=== PATIENT | male | born 1970 | race Caucasian/White ===

== ENCOUNTER 2016-08-24 11:07 | Day surgery (SDC) | payer BC ==
[2016-08-21 12:16] VITALS: BMI 29.7
[2016-08-24 11:38] VITALS: TEMP 98
[2016-08-24] MEDS ORDERED: LIDOCAINE 1% 20 ML VIAL (10MG/ML) FOR IV START INTRADERMA ONE (11:44)
[2016-08-24] MEDS ORDERED: LACTATED RINGERS 1,000 ML IV ONE (11:45)
[2016-08-24] MEDS ORDERED: PROPOFOL 10 MG/ML 20 ML VIAL IV ONE (12:30)
--- NOTE | 2016-08-24 12:46 | P.PCN ---
Date of Procedure: 08/24/16 Procedure(s) Performed: BRIEF HISTORY: Patient is a 46-year-old pleasant male, scheduled for an elective colonoscopy as a part of evaluation of right lower quadrant abdominal pain and intermittent rectal bleeding on and off left for the last few years duration PROCEDURE PERFORMED: Colonoscopy. PREOPERATIVE DIAGNOSIS: Right lower quadrant abdominal pain and intermittent rectal bleeding. IV sedation per Anesthesia. PROCEDURE: After informed consent was obtained, the patient, was brought into the endoscopy unit. IV sedation was administered by Anesthesia under continuous monitoring. Digital rectal examination was normal. Initially the Olympus CF- 160 flexible video colonoscope was then inserted in the rectum, gradually advanced into the cecum without any difficulty. Careful examination was performed as the scope was gradually being withdrawn. Ileocecal valve and the appendiceal orifice were visualized and appeared normal. Prep was excellent. Mucosa of the cecum, ascending colon, transverse colon, descending colon, sigmoid colon, and rectum appeared normal. Retroflexion was performed in the rectum and small internal hemorrhoids were seen. The patient tolerated the procedure well. IMPRESSION: Normal-appearing colon from rectum to cecum with no evidence of colorectal neoplasia. Small internal hemorrhoids. RECOMMENDATIONS: Findings of this examination were discussed with the patient as well as his family. He was advised to have a repeat screening colonoscopy in 10 years. He was advised to be a high-fiber diet and take fiber supplements on a regular basis.
[2016-08-24 12:50] VITALS: RESP 18
[2016-08-24 13:06] VITALS: BP 127/84; PULSE 66
== END 2016-08-24 13:41 | disposition home or self-care (01) ==
LOC: ORWHC2ENDO 11:07
PROVIDERS: ATTEND Internal Medicine Gastroenterology
DX: K64.8 Other hemorrhoids (principal); E78.5 Hyperlipidemia, unspecified; R10.31 Right lower quadrant pain; Z79.82 Long term (current) use of aspirin; Z79.899 Other long term (current) drug therapy; Z79.1 Long term (current) use of non-steroidal anti-inflammatories (NSAID)
CPT/HCPCS: 45378; J2704

== ENCOUNTER → 2016-09-04 | Outpatient (CLI) | payer BC ==
--- NOTE | 2016-09-04 11:07 | XR ---
EXAMINATION TYPE: XR abdomen 1V DATE OF EXAM: 09/04/2016 10:56 AM HISTORY: Pain Comparison: None.Single KUB is submitted for interpretation. Findings: Right renal calculi: 4.7 mm calculus mid pole right kidney. Right ureteral calculi: None Visualized. Left renal calculi: None Visualized. Left ureteral calculi: None Visualized. Pelvic calcifications: Right hemipelvic phleboliths noted. Bowel gas pattern is unremarkable. No free air. No mass effects. IMPRESSION: 1. Right renal calculus.
== END | disposition home or self-care (01) ==
LOC: RADXRMAIN 10:38
PROVIDERS: ATTEND Urology
DX: N20.0 Calculus of kidney (principal)
CPT/HCPCS: 74000

== ENCOUNTER → 2016-09-17 | Outpatient (CLI) | payer BC ==
[2016-09-17 09:37] LABS: Appearance,Urine Clear (Clear); Basophils # (A) 0.1 k/uL (0-0.2); Basophils % (A) 1 %; Bilirubin,Urine Negative (Negative); CH 31.1; CHCM 35.4; Eosinophils # (A) 0.1 k/uL (0-0.7); Eosinophils % (A) 2 %; Glucose,Urine (UA) Negative (Negative); HCT 48.4 % (39.0-53.0); HDW 2.57; HGB 16.5 gm/dL (13.0-17.5); Ketones,Urine Negative (Negative); Leukocyte Esterase,Urine Negative (Negative); Luc % (Auto) 3; Lymphocytes # (A) 2.4 k/uL (1.0-4.8); Lymphocytes % (A) 30 %; MCH 30.1 pg (25.0-35.0); MCHC 34.1 g/dL (31.0-37.0); MCV 88.1 fL (80.0-100.0); Mean Platelet Volume 6.7; Monocytes # (A) 0.6 k/uL (0-1.0); Monocytes % (A) 7 %; Neutrophils # (A) 4.6 k/uL (1.3-7.7); Neutrophils % (A) 57 %; Nitrite,Urine Negative (Negative); PH, Urine 7.5 (5.0-8.0); Protein,Urine Negative (Negative); RBC 5.49 m/uL (4.30-5.90); UA Billing (MACRO vs. MICRO) CHEM; Urobilinogen,Urine <2.0 mg/dL (<2.0); WBC 8.1 k/uL (3.8-10.6); WBC (Perox) 7.92
[2016-09-17 09:47] LABS: Anion Gap 11 mmol/L; Blood Urea Nitrogen 16 mg/dL (9-20); Carbon Dioxide 26 mmol/L (22-30); Chloride 105 mmol/L (98-107); Non-African American GFR(MDRD) >60 (>60 ml/min/1.73 sqM); Potassium 4.8 mmol/L (3.5-5.1); Sodium 142 mmol/L (137-145)
== END | disposition home or self-care (01) ==
LOC: LABPAT 09:12
PROVIDERS: ATTEND Urology
DX: N20.0 Calculus of kidney (principal)
CPT/HCPCS: 80051; 81003; 82565; 84520; 85025

== ENCOUNTER 2016-09-24 13:20 | Day surgery (SDC) | payer BC ==
[2016-09-21 08:39] VITALS: BMI 28.5
[~2016-09-24 13:20] MED LIST: DEXAMETHASONE SOD PHOSPHATE 10 MG/ML 1 ML VIAL IV ONE; HYDROmorphone 1 MG/ML 1 ML SYRINGE IVP PRN; LACTATED RINGERS 1,000 ML IV SCH; ONDANSETRON 4 MG/2 ML VIAL IVP ONE; Pre Op ABX Message 1 EACH MISC MISCELLANE ONE; SCOPOLAMINE 1.5MG/72HR PATCH TRANSDERM ONE
[2016-09-24 13:51] VITALS: RESP 16; TEMP 97.3
[2016-09-24] MEDS ORDERED: PROPOFOL 10 MG/ML 20 ML VIAL IV ONE (17:17)
[2016-09-24] MEDS ORDERED: MIDAZOLAM 2 MG/2 ML VIAL ONE (17:17)
[2016-09-24] MEDS ORDERED: fentaNYL (PF) 50 MCG/ML 2 ML AMP ONE (17:17)
[2016-09-24 18:15] VITALS: BP 132/91; PULSE 78
--- NOTE | 2016-09-25 12:40 | OP ---
DATE OF SERVICE: 09/24/2016 SURGEON: YAMILA MARINELLI MD PREOPERATIVE DIAGNOSIS: Right renal calculus. POSTOPERATIVE DIAGNOSIS: Right renal calculus. OPERATION: Extracorporeal shock wave lithotripsy of right renal calculus. ANESTHESIA: Intravenous sedation. The patient is a 46-year-old male with a history of urolithiasis who was recently evaluated by Dr. Torrez. The patient has bilateral kidney stones. He has a 3 x 5 mm calculus in the mid pole of the right kidney. Treatment options were reviewed with Dr. Torrez and the patient has elected to undergo ESWL. PROCEDURE: The patient was taken the operating suite where adequate intravenous sedation was given. Patient was placed in the supine position on the fluoroscopy table. His right renal calculus was localized using biplanar fluoroscopy. Lithotripsy was performed using the Dornier compact delta unit. Patient received 1500 shocks at level 4 at a rate of 80 shocks per minute. A 2-minute pause occurred after 200 shocks. The calculus was no longer visible after 1100 shocks. Anesthesia was reversed and the patient was returned to the recovery room, awake and in satisfactory condition. He will be seen back by Dr. Torrez on 09/24 at which time a KUB will be obtained. DENISE
== END 2016-09-24 18:27 | disposition home or self-care (01) ==
LOC: ORWHC2ENDO 13:20
PROVIDERS: ATTEND Urology
DX: N20.0 Calculus of kidney (principal); E78.5 Hyperlipidemia, unspecified; K76.0 Fatty (change of) liver, not elsewhere classified; N52.9 Male erectile dysfunction, unspecified; Z79.1 Long term (current) use of non-steroidal anti-inflammatories (NSAID); Z79.899 Other long term (current) drug therapy
CPT/HCPCS: 50590; J2250; J3010; J2704; 74000

== ENCOUNTER → 2016-09-24 | Outpatient (CLI) | payer BC ==
--- NOTE | 2016-09-24 16:23 | XR ---
EXAMINATION TYPE: XR KUB DATE OF EXAM: 09/24/2016 1:13 PM CLINICAL DATA: 46-year-old male presurgical for lithotripsy today, [facility] COMPARISON: 09/04/2016 FINDINGS: Redemonstrated 5 mm calcification at the right mid abdomen. Additional calcification in bilateral low er pelves probable phleboliths. Mild degenerative changes of the hips. Additionally lumbar spine. Mil d overall stool burden. Nonobstructive bowel gas pattern. IMPRESSION: Stable 5 mm right mid abdominal calcification, likely renal calculus. A couple calcifications in the pelvis probably represent phleboliths.
== END | disposition home or self-care (01) ==
LOC: RADXRMAIN 13:02
PROVIDERS: ATTEND Urology
DX: R19.8 Other specified symptoms and signs involving the digestive system and abdomen (principal); R94.8 Abnormal results of function studies of other organs and systems
CPT/HCPCS: 74000

== ENCOUNTER → 2016-09-28 | Outpatient (CLI) | payer BC ==
--- NOTE | 2016-09-28 11:40 | XR ---
EXAMINATION TYPE: XR KUB DATE OF EXAM: 09/28/2016 10:09 AM COMPARISON: 09/24/2016 INDICATION: Renal stones TECHNIQUE: Single view abdomen supine FINDINGS: There is a normal bowel gas pattern. Psoas margins are normal. No organomegaly is present. There is a 0.3 and 0.3 cm calcification in the inferior pole right renal region. A 0.3 cm distal righ t ureteral stone is not excluded. Phleboliths within the left hemipelvis. IMPRESSION: 1. Right renal possibly distal right ureteral stone.
== END | disposition home or self-care (01) ==
LOC: RADXRMAIN 10:02
PROVIDERS: ATTEND Urology
DX: N20.0 Calculus of kidney (principal)
CPT/HCPCS: 74000

== ENCOUNTER 2016-10-14 23:45 | Emergency (ER) | payer BC ==
[2016-10-14] MEDS ORDERED: DIPH,PERTUS(ACELL)TETVAC-LF 0.5 ML VIAL IM ONE (23:59)
[2016-10-14] MEDS ORDERED: ceFAZolin 1,000 MG VIAL IM STA (23:59)
--- NOTE | 2016-10-15 00:02 | ED ---
Wound/Laceration HPI - General Chief Complaint: Wound/Laceration Stated Complaint: finger injury Time Seen by Provider: 10/14/16 23:54 Source: patient, RN notes reviewed Mode of arrival: ambulatory Limitations: no limitations - History of Present Illness Initial Comments: 46-year-old male presents to the emergency department with a chief complaint of finger injuries. Patient states he was on the ball in his fingers were cut by being anchor line. Patient states notes deep cut to the right middle finger. Patient states he has pain to the left middle finger and some abrasions noted to the other fingers. Patient states he feels as if he concedes bones that he was concerned. Patient states there is no nausea vomiting fever or chills. Patient states that he was concerned due to the severity of the cut. He should be seen. Patient does not know if he is up-to-date on his tetanus. Patient states it is not currently having any other symptoms at this time.Patient denies any recent fever, chills, shortness of breath, chest pain, back pain, abdominal pain, nausea vomiting, numbness or tingling, dysuria or hematuria, constipation or diarrhea, headaches or visual changes, or any other current symptoms. - Related Data Home Medications Medication Instructions Recorded Confirmed Aspirin [Adult Low Dose Aspirin EC] 81 mg PO DAILY 08/21/16 09/24/16 Ibuprofen [Motrin] 800 mg PO Q6H PRN 08/21/16 09/24/16 Simvastatin [Zocor] 20 mg PO DAILY 08/21/16 09/24/16 Previous Rx's Medication Instructions Recorded Acetaminophen-Codeine 300-30mg 1 tab PO Q6H PRN #10 tablet 09/24/16 [Tylenol w/codeine #3] Cephalexin [Keflex] 500 mg PO Q6HR #40 cap 10/15/16 Allergies Allergy/AdvReac Type Severity Reaction Status Date / Time No Known Allergies Allergy Verified 10/14/16 23:50 Review of Systems ROS Statement: Those systems with pertinent positive or pertinent negative responses have been documented in the HPI. ROS Other: All systems not noted in ROS Statement are negative. Past Medical History Past Medical History: GI Bleed, Hyperlipidemia, Liver Disease Additional Past Medical History / Comment(s): BLOOD IN STOOL RECENTLY; HX SEVERE PAIN IN RLQ ABD OCC. FATTY LIVER DISEASE History of Any Multi-Drug Resistant Organisms: None Reported Past Surgical History: Orthopedic Surgery Additional Past Surgical History / Comment(s): VASECTOMY. UNDESCENDED TESTICLE. ORIF LT ANKLE, RT WRIST. Past Anesthesia/Blood Transfusion Reactions: No Reported Reaction Additional Past Anesthesia/Blood Transfusion Reaction / Comment(s): FAMILY HX UNKNOWN Past Psychological History: No Psychological Hx Reported Smoking Status: Former smoker Past Alcohol Use History: Occasional Additional Past Alcohol Use History / Comment(s): SMOKED 25 YEARS, 1PPD, QUIT 2006 EST. Past Drug Use History: Marijuana Additional Drug Use History / Comment(s): OCC USE - Past Family History Mother Family Medical History: Unable to Obtain Father Family Medical History: Unable to Obtain General Exam - General Exam Comments Initial Comments: General: The patient is awake and alert, in no distress, and does not appear acutely ill. Neck: The neck is supple, there is no tenderness. Cardiovascular: There is a regular rate and rhythm. No murmur, rub or gallop is appreciated. Respiratory: Lungs are clear to auscultation, respirations are non-labored, breath sounds are equal. No wheezes, stridor, rales, or rhonchi. Musculoskeletal: Sensation intact with 2+ pulses throughout bilateral upper extremities. Full range of motion of the left hand and all digits. Patient does have some tenderness to the distal aspect left middle finger. Patient's vital motion of the right hand. Patient does appear to have an abrasion to the right pinky finger. Patient does appear to have a 4 cm-type laceration that does show deep tissue such as tendon and bone to visual examination. Patient does have good range of motion. Neurological: CN II-XII intact, There are no obvious motor or sensory deficits. Coordination appears grossly intact. Speech is normal. Skin: Skin is warm and dry and no rashes or lesions are noted. Psychiatric: Normal mood and affect. Limitations: no limitations Course Vital Signs 10/14/16 23:50 Temperature 98.1 F Pulse Rate 70 Respiratory 18 Rate Blood Pressure 138/85 O2 Sat by Pulse 98 Oximetry Procedures - Procedures Initial comment: The skin was anesthetized with 1% lidocaine. The laceration was then cleansed with Betadine and irrigated with normal saline. The wound was inspected, and there was no evidence of injury to deep structures however the bone and tendons are visible however they do appear to be intact No foreign body was noted in the wound. A total of 8 skin sutures were placed utilizing 5-0 nylon to a 3-1/2 cm laceration to the right middle finger Medical Decision Making - Medical Decision Making 46-year-old male presents to the emergency Department chief complaint of finger lacerations and abrasion. This time patient went suture care. X-rays reviewed. We did thoroughly irrigate the wound and we did have the patient follow up with hand surgery. We discussed return parameters outpatient family' s questions. They stated they understood and they are in agreement with plan. This time they will be discharged home. - Radiology Data Radiology results: report reviewed, image reviewed Disposition Clinical Impression: Abrasion of right hand, Laceration of right middle finger, Fracture of phalanx of left middle finger Disposition: HOME SELF-CARE Condition: Stable Instructions: Abrasion (ED), Laceration (ED), Finger Fracture (ED) Additional Instructions: Please use medication as discussed. Please follow up with family doctor if symptoms have not improved over the next two days. Please return to the emergency room if your symptoms increase or worsen or for any other concerns. Please return to the emergency room in 8-10 days to have sutures removed. Please leave wound covered for the first 24-48 hours and then leave open to air after that time. Please use clean soap and water to clean the suture area to prevent scabbing over the top of your sutures. Please watch for any signs of infection which may include but not limited to increased pain, swelling, redness , fever or chills. Please return to the emergency room if any signs of infection do occur. Please return to the emergency room for any other concerns or complications. Prescriptions: Cephalexin [Keflex] 500 mg PO Q6HR #40 cap Referrals: Gwendolyn Marshall MD [Primary Care Provider] - 1-2 days Shawn Troy DO [Doctor of Osteopathic Medicine] - 1-2 days Time of Disposition: 01:09
[2016-10-15] MEDS ORDERED: HYDROcodone/APAP 5-325MG 1 EACH TAB PO STA (00:18)
--- NOTE | 2016-10-15 00:18 | XR ---
EXAM: XR Right Hand Complete, 3 or More Views CLINICAL HISTORY: Reason: Right hand caught in bone anchor lying, lacerations to third and fifth digits. TECHNIQUE: Frontal, lateral and oblique views of the right hand. COMPARISON: No relevant prior studies available. FINDINGS: Bones/joints: No acute osseous abnormality. There is a single screw present within the scaphoid. Small subchondral cyst formation is seen within the lunate, presumably on a degenerative basis. Trace chondrocalcinosis at the TFCC complex. No dislocation. Soft tissues: Soft tissue swelling and defect involving the third digit about the PIP joint with mild soft tissue swelling of the fifth digit just proximal to the PIP joint. No radiopaque foreign body. IMPRESSION: 1. Posttraumatic changes involving the third and fifth digit soft tissues without underlying acute fracture or radiopaque foreign body. 2. Additional, nonacute findings as above.
--- NOTE | 2016-10-15 00:21 | XR ---
EXAM: XR Left Finger(s), 2 or More Views CLINICAL HISTORY: Reason: Left third digit caught in bone anchor line, laceration TECHNIQUE: Frontal, lateral and oblique views of the left third digit. COMPARISON: No relevant prior studies available. FINDINGS: Bones/joints: Small essentially nondisplaced fracture along the volar base of the third distal phalangeal tuft. There is mild degenerative change of the third DIP joint. No dislocation. Soft tissues: Mild soft tissue swelling about the distal third digit. No radiopaque foreign body. IMPRESSION: Distal third digit soft tissue swelling with small fracture involving the volar base of the distal phalangeal tuft.
[2016-10-15 01:18] VITALS: BP 139/86; PULSE 73; RESP 20; TEMP 97.2
== END 2016-10-15 01:35 | disposition home or self-care (01) ==
LOC: EC 23:45
DX: S62.633A Displaced fracture of distal phalanx of left middle finger, initial encounter for closed fracture (principal); S61.212A Laceration without foreign body of right middle finger without damage to nail, initial encounter; Z23 Encounter for immunization; E78.5 Hyperlipidemia, unspecified; Z87.891 Personal history of nicotine dependence; Z79.82 Long term (current) use of aspirin; Z79.899 Other long term (current) drug therapy; W26.8XXA Contact with other sharp object(s), not elsewhere classified, initial encounter; Y92.89 Other specified places as the place of occurrence of the external cause
CPT/HCPCS: 73130; 73140; 90715; 99283; 12002; 96372; 90471; J0690

== ENCOUNTER → 2022-11-03 | Outpatient (CLI) | payer BC ==
--- NOTE | 2022-11-03 15:20 | MR ---
EXAMINATION TYPE: MR shoulder LT wo con DATE OF EXAM: 11/03/2022 2:56 PM COMPARISON: NONE HISTORY: Lt shoulder pain TECHNIQUE: Multiplanar multispin echo imaging of the left shoulder was performed. FINDINGS: Rotator cuff : There is mild thickening and heterogeneity of the supraspinatus tendon compatible chrome plater emerald tendinopathy. No evidence for full-thickness tear. There is no complete or bursal/articular sided partial rotator cuff tear. The subscapularis constituent of the rotator cuff is intact. Bursa: No bursal effusion or thickening is seen. Musculature: There is no muscular tear, contusion, or atrophy. Acromioclavicular joint : Moderate AC joint arthropathy. Subacromial spurring resulting in impingemen t. Osseous structures : There are no fractures or regions of abnormal bone marrow signal intensity. Long biceps tendon : The biceps tendon is normally situated within the bicipital groove. No complete or partial biceps tendon tear is present. Glenohumeral Joint fluid : There is no glenohumeral joint effusion. Cartilage and Bone : No focal hyaline cartilage defects are noted. No Hill-Sachs, reverse Hill-Sachs, or bony Bankart lesions are seen. Labrum : 8 mm cyst adjacent to the inferior glenoid labrum could reflect a paravertebral cyst with sm all labral tear. OTHER FINDINGS : none IMPRESSION: 1. Mild chronic tendinopathy supraspinatus tendon secondary to impingement. 2. Small parallel labral cyst at the inferior glenoid labrum. Small tear is difficult fluid.
== END | disposition home or self-care (01) ==
LOC: RADMRIMAIN 13:44
PROVIDERS: ATTEND Orthopaedic Surgery Sports Medicine
DX: M19.012 Primary osteoarthritis, left shoulder (principal); S43.432A Superior glenoid labrum lesion of left shoulder, initial encounter; M25.812 Other specified joint disorders, left shoulder; X58.XXXA Exposure to other specified factors, initial encounter

== ENCOUNTER → 2022-11-09 | Outpatient (CLI) | payer BC ==
--- NOTE | 2022-11-14 10:25 | MR ---
EXAMINATION TYPE: MR lumbar spine wo con DATE OF EXAM: 11/09/2022 COMPARISON: none HISTORY: Back pain right side TECHNIQUE: Multiplanar, multisequence images of the lumbar spine were acquired without IV contrast. L1-L2: Normal disc appearance without desiccation. No herniation, protrusion or disc bulging. No ca nal stenosis is present. Foramina are patent bilaterally. L2-L3: Normal disc appearance without desiccation. No herniation, protrusion or disc bulging. No ca nal stenosis is present. Foramina are patent bilaterally. L3-L4: Moderate disc desiccation with posterior disc bulge. Effacement ventral thecal sac. No evidenc e for central stenosis or lateral recess stenosis. Mild left foraminal encroachment. L4-L5: Severe disc desiccation with posterior disc bulge. No evidence for central stenosis or disc he rniation. Mild facet joint arthropathy resulting in moderate left-sided foraminal encroachment. L5-S1: Severe disc desiccation with posterior disc bulge greatest paracentrally and to the left where there appears to be mild left lateral recess stenosis. No central stenosis. Facet joint arthropathy resulting in severe right-sided foraminal encroachment. Lumbar segments are intact. No paraspinal masses are identified. Conus medullaris has a normal appe arance. IMPRESSION: 1. Multilevel degenerative disc disease. 2. Neural foraminal encroachment as outlined above. Mild left lateral recess stenosis L5-S1.
== END | disposition home or self-care (01) ==
LOC: RADMRIMAIN 20:15
PROVIDERS: ATTEND Internal Medicine
DX: M51.36 Other intervertebral disc degeneration, lumbar region (principal); M48.061 Spinal stenosis, lumbar region without neurogenic claudication
CPT/HCPCS: 72148

== ENCOUNTER → 2024-07-15 | Outpatient (CLI) | payer BC ==
[2024-07-15 15:35] VITALS: BP 151/96; PULSE 76; RESP 16; TEMP 98.1
--- NOTE | 2024-07-15 16:14 | P.SLEEP ---
History of Present Illness DATE: 07/15/2024 CONSULTATION/NEW PATIENT EVALUATION HISTORY OF PRESENT ILLNESS/SLEEP-WAKE EVALUATION: 54-year-old gentleman had be en evaluated in the sleep center for possible obstructive sleep apnea hypopnea syndrome. SLEEP SCHEDULE: Usually sleep schedule from 8 PM to 3:30 AM on weekdays and from 1011 PM to 7 AM on weekend. FALLING ASLEEP: No problems with falling asleep. DURING SLEEP: Patient snores and wakes up from sleep multiple times with 2 episodes of nocturia. Positive history of restless legs. No history of h ypnogogical hallucinations, sleep paralysis, or cataplexy. DURING THE DAY/WAKE STATE: In the morning patient wake up tired, has difficulties to pay attention, has problems with concentration, irritability, depression, anxiety, claustrophobia.. [place] sleepiness scale is increased to 10. Patient takes nap from 4 to 5 PM. PAST MEDICAL HISTORY: Hyperlipidemia, allergy, rhinitis, kidney stones. PAST SURGICAL HISTORY: Hemorrhoidectomy, hernia repair. MEDICATIONS: Have been reviewed, please see below. SOCIAL HISTORY: Please see below. FAMILY HISTORY: Please see below. REVIEW OF SYSTEMS: Snoring, multiple awakenings from sleep, sleepiness during the day. No fevers. No double vision. No recent chest pain. No shortness of breath. No abdominal pain. No bleeding episodes. No blood in urine. No seizure episodes. PHYSICAL EXAMINATION: GENERAL: A pleasant patient without any distress. VITAL SIGNS: Please see below, weight 226 pounds, BMI 31.9. HEENT: PERRLA, EOMI. Evaluation of oropharynx showed tongue protrudes midline, low position of soft palate Mallampati 2, restriction of nasal breathing bilaterally, retrognathia 2-3 mm. NECK: Supple. No JVD. Thyroid is not palpable. 16.5 inches in circumference. LUNGS: Clear to percussion and to auscultation. Good air exchange. No wheezing or rhonchi. HEART: S1, S2 regular. No murmurs, gallops or rubs. ABDOMEN: Soft and nontender. Bowel sounds are present. No organomegaly appreciated. EXTREMITIES: No clubbing or cyanosis. MOBILE [employer]OUNGE [employer]IVER: Awake, alert, and oriented x3. Cranial nerves 2 to 7 intact. There is no fasciculation or atrophy noted. No focal deficits observed. ASSESSMENT: 1. Snoring, multiple awakenings from sleep, restriction of nasal breathing, retrognathia, sleepiness with [place] Sleepiness Scale 10. Obstructive sleep apnea hypopnea syndrome. 2. Mild obesity, BMI 31.9. 3. Hyperlipidemia. 4. Allergy. 5. Rhinitis. 6 . Hypertension in the office. 7. History of kidney stones. 8. Status post hemorrhoidectomy. 9 . Status post hernia repair. PLAN: 1. Home sleep apnea test for evaluation of patient's breathing during sleep. 2. CPAP/BiPAP titration if sleep study confirms obstructive sleep apnea-hypopnea syndrome. 3. Preferable position during sleep on the side. 4. No driving if patient feels any sleepiness. Patient is aware of civil and criminal liability for unsafe driving. 5. Sleep hygiene with regular sleep time for at least 7.5-8 hours. 6. Watching weight. Thank you very much for referring this patient for consultation. Sincerely, Simeon Dupree MD, PhD, FAASM. Diplomat of [place] [employer], Sleep Medicine Board by [place] [employer] [place] [employer] [facility] [place] cc: Gwendolyn Marshall MD Past Medical History Past Medical History: GI Bleed, Hyperlipidemia, Liver Disease Additional Past Medical History / Comment(s): BLOOD IN STOOL RECENTLY; HX SEVERE PAIN IN RLQ ABD OCC. FATTY LIVER DISEASE History of Any Multi-Drug Resistant Organisms: None Reported Past Surgical History: Orthopedic Surgery Additional Past Surgical History / Comment(s): VASECTOMY. UNDESCENDED TESTICLE. ORIF LT ANKLE, RT WRIST. Past Anesthesia/Blood Transfusion Reactions: No Reported Reaction Additional Past Anesthesia/Blood Transfusion Reaction / Comment(s): FAMILY HX UNKNOWN Past Psychological History: No Psychological Hx Reported Smoking Status: Never smoker Past Alcohol Use History: Occasional Additional Past Alcohol Use History / Comment(s): SMOKED 25 YEARS, 1PPD, QUIT 2006 EST. Past Drug Use History: Marijuana Additional Drug Use History / Comment(s): daily - Past Family History Mother Family Medical History: Unable to Obtain Additional Family Medical History / Comment(s): Adopted Father Family Medical History: Unable to Obtain Additional Family Medical History / Comment(s): Adopted Medications and Allergies Home Medications Medication Instructions Recorded Confirmed Type Aspirin [Adult Low Dose Aspirin EC] 81 mg PO DAILY 08/21/16 07/15/24 History Ibuprofen [Motrin] 800 mg PO TID PRN 08/21/16 07/15/24 History Albuterol Sulfate [Albuterol 2 puff PO RT-Q4H PRN 06/18/22 06/18/22 History Sulfate Hfa] Cholecalciferol [Vitamin D3 (125 125 mcg PO DAILY 06/18/22 06/18/22 History Mcg = 5000 Iu)] Fenofibrate 160 mg PO DAILY 06/18/22 07/15/24 History Fluticasone Nasal [place] [Flonase 2 spray EA NOSTRIL DAILY 06/18/22 06/18/22 History Nasal [place]] Fluticasone Propion/Salmeterol 1 puff INHALATION RT-BID 06/18/22 07/15/24 History [Fluticasone-Salmeterol 250-50] Atorvastatin [Lipitor] 40 mg PO HS #30 tab 06/19/22 07/15/24 Rx Famotidine [Pepcid] 20 mg PO BID #60 tab 06/19/22 07/15/24 Rx Clopidogrel [Plavix] 75 mg PO DAILY #30 tablet 06/27/22 Rx Allergies Allergy/AdvReac Type Severity Reaction Status Date / Time No Known Allergies Allergy Verified 06/18/22 16:59 Physical Exam Vitals: Vital Signs Temp Pulse Resp BP Pulse Ox 07/15/24 15:34 98.1 F 76 16 151/96 96 Intake and Output 07/15/24 07/15/24 07/15/24 06:59 14:59 22:59 Other: Weight 102.512 kg Sleep Note - Sleep Data ESS Total: 10 - Sleep Note Sleep Note: Temperature: 98.1 F Pulse Rate: 76 Respiratory Rate: 16 Blood Pressure: 151/96 SpO2: 96 Height: 5 ft 10.5 in Weight: 102.512 kg BMI: Neck Circumference: 16.5
== END ==
LOC: 3 N SLEEP 15:05
PROVIDERS: ATTEND Internal Medicine
DX: G47.33 Obstructive sleep apnea (adult) (pediatric) (principal); E66.9 Obesity, unspecified; E78.5 Hyperlipidemia, unspecified; I10 Essential (primary) hypertension; J30.89 Other allergic rhinitis; F12.90 Cannabis use, unspecified, uncomplicated; Z98.890 Other specified postprocedural states; Z87.442 Personal history of urinary calculi; Z68.31 Body mass index [BMI] 31.0-31.9, adult; Z87.891 Personal history of nicotine dependence
CPT/HCPCS: 99211

== ENCOUNTER → 2024-07-29 | Outpatient (CLI) | payer BC ==
--- NOTE | 2024-07-30 13:18 | P.PCN ---
Description of Procedure: CLINICAL: A home sleep apnea test has been done for confirmation of possible obstructive sleep apnea-hypopnea syndrome. DESCRIPTION OF PROCEDURE: RESULTS: Recording time was 8 hours 19 minutes. Evaluation time was 7 hours 01 minutes. Evaluation time is sufficient for making conclusion about results of the test. Raw data of sleep recording has been reviewed and is adequate. Respiratory channel showed 229 apneas and 110 hypopneas. Apnea-hypopnea index was 48.3 per hour, which included obstructive apnea index 8.5, central apnea index 22.9, mixed apnea index 1.1. Pulse rate in the range between minimum 50, maximum 176, average 63 by computer calculation. Lowest desaturation was []%. IMPRESSION: 1. Severe Central and Obstructive Sleep Apnea Hypopnea Syndrome. Please see other impressions from consultation. PLAN: 1. The patient should have PAP titration for correction of respiratory abnormallities during sleep. 2. I will see patient for follow up visit to discuss results of the test, evaluate clinical response on treatment with PAP therapy and make any necessary adjustments related to mask fitting, pressure, and humidification. 3. Watching weight. 4. Sleep hygiene with regular time in bed for at least 8 hours. 5. No driving if feeling any sleepiness. Thank you very much for allowing me to participate in the management of your patient. Sincerely, Simeon Dupree MD, PhD, FAASM Diplomat of [place] [employer] Sleep Medicine Board of [place] [employer] [facility] [place] cc: Gwendolyn Marshall MD
== END ==
LOC: 3 N SLEEP 16:41
PROVIDERS: ATTEND Internal Medicine
DX: G47.33 Obstructive sleep apnea (adult) (pediatric) (principal); F12.90 Cannabis use, unspecified, uncomplicated; Z87.891 Personal history of nicotine dependence

== ENCOUNTER → 2024-11-12 | Outpatient (CLI) | payer BC | END | disposition home or self-care (01) | LOC: LABWHC1 08:00 | PROVIDERS: ATTEND Internal Medicine | DX: R53.82 Chronic fatigue, unspecified (principal) | CPT/HCPCS: 36415; 84403 ==